=== PATIENT | male | born 1945 | race Caucasian/White ===

== ENCOUNTER 2018-04-17 22:24 | Emergency (ER) | payer OTHER ==
--- NOTE | 2018-04-17 22:39 | CPEKG ---
Heart Rate: 83 RR Interval: 723 P-R Interval: 192 QRSD Interval: 94 QT Interval: 388 QTC Interval: 456 P [place]: 62 QRS [place]: 65 T Wave [place]: 40 EKG Severity - ABNORMAL ECG - EKG Impression: SINUS RHYTHM EKG Impression: LEFT ATRIAL ABNORMALITY Electronically Signed By: Elke Paul 19-Apr-2018 06:01:19
[2018-04-17] MEDS ORDERED: ASPIRIN 81 MG CHEWABLE TAB PO ONE (22:40)
[2018-04-17 22:55] LABS: PLATELET COUNT 239 10^3/uL (150-400)
--- NOTE | 2018-04-17 23:25 | EDPHY ---
H & P Stated Complaint: chest pains starting at 1900 Time Seen by Provider: 04/17/18 22:32 HPI/ROS: HPI The patient presents with chest pain which began at 7:00 p.m. Tonight which started slowly and got progressively worse over 30 min. The pain feels like a muscle strain and has been mild but constant since its onset. He has no prior history of similar pain. Because the pain did not go away, he comes to the emergency department. He does not have any associated shortness of breath, nausea, vomiting, dizziness, diaphoresis. The pain does not radiate. He has had a history of twinges of sharp pain in his right chest though this feels different. He is visiting from [place] in flew here on an airplane earlier today for his grandson's graduation.. REVIEW OF SYSTEMS Constitutional: No fever, no chills. Eyes: No discharge. ENT: No sore throat. Cardiovascular: No chest pain, no palpitations. Respiratory: No cough, no shortness of breath. Gastrointestinal: No abdominal pain, no vomiting. Genitourinary: No hematuria. Musculoskeletal: No back pain. Skin: No rashes. Neurological: No headache. PMHx: History of hypertension though taken off his lisinopril 3 months ago because of hypotension, GERD Soc Hx: Visiting from out of town, nonsmoker PHYSICAL General Appearance: Alert, no distress Eyes: Pupils equal and round no pallor or injection ENT, Mouth: Mucous membranes moist Respiratory: There are no retractions, lungs are clear to auscultation Cardiovascular: Regular rate and rhythm Chest wall: Nontender Gastrointestinal: Abdomen is soft and non-tender, no masses, bowel sounds normal Neurological: A&O, moves all extremities Skin: Warm and dry, no rashes Musculoskeletal: Neck is supple non tender Extremities: symmetrical, full range of motion Psychiatric: Patient is oriented X 3, there is no agitation Source: Patient Exam Limitations: No limitations - Medical/Surgical History Hx Asthma: No Hx Chronic Respiratory Disease: No Hx Diabetes: No Hx Cardiac Disease: No Hx Renal Disease: No Hx Cirrhosis: No Hx Alcoholism: No Hx HIV/AIDS: No Hx Splenectomy or Spleen Trauma: No Other PMH: htn- resolved, GERD, BPH, manic depression - Social History Smoking Status: Never smoked Constitutional: Initial Vital Signs Temperature (C) 36.6 C 04/17/18 22:28 Heart Rate 96 04/17/18 22:28 Respiratory Rate 16 04/17/18 22:28 Blood Pressure 145/92 H 04/17/18 22:28 O2 Sat (%) 97 04/17/18 22:28 O2 Delivery Mode Room Air Allergies/Adverse Reactions: No Known Allergies Allergy (Unverified 04/17/18 22:26) Home Medications: Medication Instructions Recorded Levothyroxine 04/17/18 Lisinopril 04/17/18 [place] Carbonate 04/17/18 Pravastatin Sodium 04/17/18 Tamsulosin HCl 04/17/18 Medical Decision Making - Diagnostics EKG Interpretation: EKG: Complete interpretation has been separately recorded in the [facility] archive. Summary impression: No ST segment changes Imaging Results: Imaging Impressions Chest X-Ray 04/17/18 22:46 Impression: No acute findings in the chest. Imaging: I viewed and interpreted images myself Differential Diagnosis: This is a 72-year-old man with prior history of hypertension and GERD who took an airplane ride today from or again who presents now with chest pain for the last 4 hr which started slowly, is midsternal, is mild in nature, without associated features. Differential diagnosis includes ACS, PE, pneumothorax, muscle strain, GERD. The patient was monitored for several hours here with no events on telemetry. Basic labs including troponin testing revealed elevated creatinine. When discussed with patient, he says this is a longstanding issue for him and he is aware that he has compromised renal function. The patient had repeat EKG and troponin which were unremarkable. His chest x-ray was normal. I suspect his pain could actually be from muscle strain. He later told me that wall on his airplane ride here he was quite emotional and had been weeping vigorously for several minutes. There is some diagnostic uncertainty here, and I have discussed with him return to the emergency room if he is worse in any way. Given his age, I do recommend that he follow up with his primary care doctor to determine whether or not cardiac stress testing is needed. He feels comfortable being discharged from the emergency department. - Data Points Laboratory Results: Laboratory Results 04/17/18 22:40 04/17/18 22:40 04/18/18 04/17/18 04/17/18 00:16 22:40 22:40 WBC RBC Hgb Hct MCV MCH MCHC RDW Plt Count MPV Neut % (Auto) Lymph % (Auto) [place] % (Auto) Eos % (Auto) Baso % (Auto) Nucleat RBC Rel Count Absolute Neuts (auto) Absolute Lymphs (auto) Absolute Monos (auto) Absolute Eos (auto) Absolute Basos (auto) Absolute Nucleated RBC Immature Gran % Immature Gran # D-Dimer 0.42 ug/mLFEU ug/mLFEU (0.00-0.50) Sodium 142 mEq/L mEq/L (135-145) Potassium 4.4 mEq/L mEq/L (3.3-5.0) Chloride 104 mEq/L mEq/L (97-110) Carbon Dioxide 24 mEq/l mEq/l (22-31) Anion Gap 14 mEq/L mEq/L (8-16) BUN 19 mg/dL mg/dL (7-23) Creatinine 1.6 mg/dL H mg/dL (0.7-1.3) Estimated GFR 42 Glucose 90 mg/dL mg/dL (70-100) Calcium 9.1 mg/dL mg/dL (8.5-10.4) Troponin I < 0.012 ng/mL ng/mL < 0.012 ng/mL ng/mL (0.000-0.034) (0.000-0.034) 04/17/18 22:40 WBC 8.00 10^3/uL 10^3/uL (3.80-9.50) RBC 4.58 10^6/uL 10^6/uL (4.40-6.38) Hgb 13.5 g/dL L g/dL (13.7-17.5) Hct 41.2 % % (40.0-51.0) MCV 90.0 fL fL (81.5-99.8) MCH 29.5 pg pg (27.9-34.1) MCHC 32.8 g/dL g/dL (32.4-36.7) RDW 14.3 % % (11.5-15.2) Plt Count 239 10^3/uL 10^3/uL (150-400) MPV 10.4 fL fL (8.7-11.7) Neut % (Auto) 64.6 % % (39.3-74.2) Lymph % (Auto) 19.3 % % (15.0-45.0) [place] % (Auto) 12.1 % % (4.5-13.0) Eos % (Auto) 3.1 % % (0.6-7.6) Baso % (Auto) 0.6 % % (0.3-1.7) Nucleat RBC Rel Count 0.0 % % (0.0-0.2) Absolute Neuts (auto) 5.17 10^3/uL 10^3/uL (1.70-6.50) Absolute Lymphs (auto) 1.54 10^3/uL 10^3/uL (1.00-3.00) Absolute Monos (auto) 0.97 10^3/uL H 10^3/uL (0.30-0.80) Absolute Eos (auto) 0.25 10^3/uL 10^3/uL (0.03-0.40) Absolute Basos (auto) 0.05 10^3/uL 10^3/uL (0.02-0.10) Absolute Nucleated RBC 0.00 10^3/uL 10^3/uL (0-0.01) Immature Gran % 0.3 % % (0.0-1.1) Immature Gran # 0.02 10^3/uL 10^3/uL (0.00-0.10) D-Dimer Sodium Potassium Chloride Carbon Dioxide Anion Gap BUN Creatinine Estimated GFR Glucose Calcium Troponin I Medications Given: Discontinued Medications Aspirin (Aspirin) 324 mg PO EDNOW ONE Stop: 04/17/18 22:41 Last Admin: 04/17/18 22:46 Dose: 324 mg Departure - Departure Disposition: Home, Routine, Self-Care Clinical Impression: Chest pain Qualifiers: Chest pain type: unspecified Qualified Code(s): R07.9 - Chest pain, unspecified Condition: Good Instructions: Chest Pain (ED) Additional Instructions: The cause of your chest pain is not entirely clear. Here, we have ruled out blood clot to the lung, pneumonia, heart attack. However, if your pain returns or becomes more severe you should return to the emergency department for repeat evaluation. I recommend that when you return home you follow up with your primary care doctor to see if you need to have any testing of your heart. Referrals: BALBINA LATHAM [Other] - As per Instructions
--- NOTE | 2018-04-18 00:17 | CPEKG ---
Heart Rate: 59 RR Interval: 1017 P-R Interval: 212 QRSD Interval: 90 QT Interval: 416 QTC Interval: 413 P [place]: 61 QRS [place]: 73 T Wave [place]: 55 EKG Severity - ABNORMAL ECG - EKG Impression: SINUS RHYTHM EKG Impression: LEFT ATRIAL ABNORMALITY Electronically Signed By: Elke Paul 18-Apr-2018 07:35:13
[2018-04-18 01:08] VITALS: BP 147/86
== END 2018-04-18 01:07 | disposition home or self-care (01) ==
DX: R07.9 Chest pain, unspecified (principal); I10 Essential (primary) hypertension